=== PATIENT | male | born 1995 | race Caucasian/White ===

== ENCOUNTER 2023-02-07 15:45 | Emergency (ER) | payer OTHER, SELFPAY ==
[2023-02-07 16:01] VITALS: BP 138/61; PULSE 89; RESP 18; TEMP 37; O2SAT 96; BMI 33.4
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
[2023-02-07] MEDS: cephALEXin 250 MG CAPSULE 500 MG PO (19:29)
== END 2023-02-07 19:36 | disposition home or self-care (01) ==
PROVIDERS: Emergency Provider Emergency Medicine
DX: L03.116 Cellulitis of left lower limb (principal)
CPT/HCPCS: 99283